=== PATIENT | female | born 1995 | race Caucasian/White ===

== ENCOUNTER 2016-11-24 16:48 | Emergency (ER) | payer BC, OTHER ==
[2016-11-24 17:38] VITALS: BP 99/52
--- NOTE | 2016-11-24 18:54 | UC ---
Eye Complaint HPI - HPI Summary HPI Summary: Patient fell asleep with contacts in, woke up with red eye, next day eye was still red and stuck shut, keep putting out goopy drainage. - History of Current Complaint Chief Complaint: UCEye Stated Complaint: EYE REDNESS/BURNING Time Seen by Provider: 11/24/16 18:46 Hx Obtained From: Patient Hx Last Menstrual Period: 11/03/16 on BCP's ?: No Onset/Duration: Sudden Onset, Lasting Days Timing: Constant Severity Initially: Mild Severity Currently: Mild Pain Intensity: 3 Pain Scale Used: 0-10 Numeric Location of Injury: Conjunctiva, Sclera Character: Foreign Body Sensation Aggravating Factor(s): Light Alleviating Factor(s): Nothing Associated Signs And Symptoms: Positive: Photophobia, Drainage (Purulent) - Risk Factors Penetrating Injury Risk Factor: Negative Globe Rupture Risk Factors: Negative Acute Glaucoma Risk Factors: Negative Optic Artery Occlusion Risk Factors: Negative - Allergies/Home Medications Allergies/Adverse Reactions: Allergies Allergy/AdvReac Type Severity Reaction Status Date / Time environmental Allergy Congestion Uncoded 11/24/16 17:38 Home Medications: Home Medications Allergy Injections 3 inj SEE INSTRUCTIONS 11/24/16 [History Confirmed 11/24/16] PMH/Surg Hx/FS Hx/Imm Hx Previously Healthy: Yes Endocrine History Of: Denies: Diabetes, Thyroid Disease Cardiovascular History Of: Denies: Cardiac Disorders, Hypertension Respiratory History Of: Reports: Asthma Denies: COPD GI/ History Of: Denies: Ulcer - Surgical History Surgical History: Yes Surgery Procedure, Year, and Place: [facility] surgery for ovarian cyst, 06/2015, [place]. tonsillectomy 10/2014. [facility] [place] 01/2016 - Family History Known Family History: Positive: None Negative: Renal Disease - Social History Alcohol Use: None Substance Use Type: None Smoking Status (MU): Never Smoked Tobacco - Immunization History Most Recent Influenza Vaccination: none Review of Systems Constitutional: Negative Skin: Negative Eyes: Drainage, Eye Redness ENT: Negative Respiratory: Negative Cardiovascular: Negative Gastrointestinal: Negative Genitourinary: Negative Motor: Negative Neurovascular: Negative Musculoskeletal: Negative Neurological: Negative Psychological: Negative All Other Systems Reviewed And Are Negative: Yes Physical Exam Triage Information Reviewed: Yes Appearance: Well-Nourished, Ill-Appearing, Pain Distress Vital Signs: Initial Vital Signs Temp 98.8 F 11/24/16 17:33 Pulse 78 11/24/16 17:33 Resp 16 11/24/16 17:33 BP 99/52 11/24/16 17:33 Pulse Ox 100 11/24/16 17:33 Vital Signs Reviewed: Yes Eye Exam: Normal Eyes: Positive: Conjunctiva Inflamed, Discharge - purulent, Other: - PERRLA, scerla is diffusly irritated, ENT Exam: Normal ENT: Positive: Normal ENT inspection, Hearing grossly normal, Pharynx normal, TMs normal Dental Exam: Normal Neck exam: Normal Respiratory Exam: Normal Cardiovascular Exam: Normal Abdominal Exam: Normal Musculoskeletal Exam: Normal Neurological Exam: Normal Psychological Exam: Normal Skin Exam: Normal Eye Complaint Course/Dx - Course Course Of Treatment: hx obtained, exam performed, meds reviewed, med prescribed. education on prevention of spreading. - Differential Dx/Diagnosis Differential Diagnosis/HQI/PQRI: Conjunctivitis, Corneal Abrasion, Periorbital Cellulitis, Orbital Cellulitis, Other - iritis Provider Diagnoses: right conjunctivitis bacterial Discharge - Discharge Plan Condition: Stable Disposition: HOME Prescriptions: Erythromycin OPHTH.OINT* [Ilotycin OPHTH.OINT*] 1 applic RIGHT EYE TID #1 tube Patient Education Materials: Conjunctivitis (ED) Referrals: Non Staff,Doctor [Primary Care Provider] - Additional Instructions: Use the medication as prescribed. Do not wear your contacts until infection clears, change your pillow case frequently to prevent infection.
== END 2016-11-24 18:55 | disposition home or self-care (01) ==
LOC: UCCORT 16:48
DX: H10.31 Unspecified acute conjunctivitis, right eye (principal); Z90.49 Acquired absence of other specified parts of digestive tract
CPT/HCPCS: 99212; G0463

== ENCOUNTER 2017-12-12 10:22 | Emergency (ER) | payer BC, OTHER ==
[2017-12-12 11:00] VITALS: BP 116/75
--- NOTE | 2017-12-12 11:17 | ED ---
Throat Pain/Nasal Congestion - HPI Summary HPI Summary: 22 yr old female with complaint of cough for a week, post nasal drip. She is using her nebs a lot. She has asthma history. She has not had fever, chills, myalgias. Denies CP, SOB. No other complaints. - History of Current Complaint Chief Complaint: UCRespiratory Time Seen by Provider: 12/12/17 11:03 - Allergies/Home Medications Allergies/Adverse Reactions: Allergies Allergy/AdvReac Type Severity Reaction Status Date / Time environmental Allergy Congestion Uncoded 12/12/17 10:56 Home Medications: Home Medications Albuterol 0.5% CONC NEB.DANIS* [Albuterol 0.5ol*] 1 mg .SEE ORDER BID 12/12/17 [ History Confirmed 12/12/17] Sertraline* [Zoloft*] 75 mg PO DAILY 12/12/17 [History Confirmed 12/12/17] PMH/Surg Hx/FS Hx/Imm Hx Endocrine/Hematology History: Denies: Hx Diabetes, Hx Thyroid Disease Cardiovascular History: Denies: Hx Hypertension Respiratory History: Reports: Hx Asthma Denies: Hx Chronic Obstructive Pulmonary Disease (COPD) GI History: Denies: Hx Ulcer - Surgical History Surgery Procedure, Year, and Place: Lap surgery for ovarian cyst, 06/2015, [place]. tonsillectomy 10/2014. [facility] 01/2016 Infectious Disease History: No Infectious Disease History: Reports: Hx Hepatitis Denies: Hx Clostridium Difficile, Hx Human Immunodeficiency Virus (HIV), Hx of Known/Suspected MRSA, Hx Shingles, Hx Tuberculosis, Hx Known/Suspected VRE, Hx Known/Suspected VRSA, History Other Infectious Disease, Traveled Outside the [place] in Last 30 Days - Family History Known Family History: Positive: None Negative: Renal Disease - Social History Occupation: Student Lives: With Family Alcohol Use: Rare Substance Use Type: Reports: None Smoking Status (MU): Never Smoked Tobacco Review of Systems Negative: Fever, Chills, Fatigue Positive: Nasal Discharge, Other - sinus pressure Positive: Cough All Other Systems Reviewed And Are Negative: Yes Physical Exam Triage Information Reviewed: Yes Vital Signs On Initial Exam: Initial Vitals Temp Pulse Resp BP Pulse Ox 98.1 F 91 16 116/75 100 12/12/17 10:54 12/12/17 10:54 12/12/17 10:54 12/12/17 10:54 12/12/17 10:54 Vital Signs Reviewed: Yes Appearance: Positive: Well-Appearing, No Pain Distress Skin: Positive: Warm Head/Face: Positive: Normal Head/Face Inspection Eyes: Positive: EOMI ENT: Positive: Pharynx normal, Nasal congestion, TMs normal, Sinus tenderness Neck: Positive: Nontender Respiratory/Lung Sounds: Positive: Clear to Auscultation, Breath Sounds Present Cardiovascular: Positive: RRR. Negative: Murmur Abdomen Description: Positive: Nontender Musculoskeletal: Positive: Strength/ROM Intact Neurological: Positive: Sensory/Motor Intact, Alert, Oriented to Person Place, Time, CN Intact II-III Psychiatric: Positive: Normal - [place] Coma Scale Best Eye Response: 4 - Spontaneous Best Motor Response: 6 - Obeys Commands Best Verbal Response: 5 - Oriented Coma Scale Total: 15 Diagnostics - Vital Signs Vital Signs Temp Pulse Resp BP Pulse Ox 12/12/17 10:54 98.1 F 91 16 116/75 100 - Laboratory Lab Statement: Any lab studies that have been ordered have been reviewed, and results considered in the medical decision making process. EENT Course/Dx - Course Course Of Treatment: 22 yr old with sinusitis and cough. Rx with augmentin and prednisone. - Diagnoses Provider Diagnoses: Sinusitis, Acute bronchitis Discharge - Discharge Plan Condition: Good Disposition: HOME Prescriptions: Amoxicillin/Clavulanate TAB* [Augmentin TAB 875*] 875 mg PO BID #20 tab predniSONE TAB* [Deltasone TAB*] 40 mg PO DAILY #8 tab Patient Education Materials: Asthma (ED), Sinusitis (ED) Referrals: [facility] [Outside] Non Staff,Doctor [Primary Care Provider] -
== END 2017-12-12 11:17 | disposition home or self-care (01) ==
LOC: UCCORT 10:22
DX: J32.9 Chronic sinusitis, unspecified (principal); J20.9 Acute bronchitis, unspecified; J45.909 Unspecified asthma, uncomplicated
CPT/HCPCS: 99212; G0463

== ENCOUNTER 2018-07-19 11:11 | Emergency (ER) | payer BC ==
[2018-07-19 12:52] VITALS: BP 116/59
--- NOTE | 2018-07-19 13:01 | UC ---
UC General HPI - HPI Summary HPI Summary: Patient is complaining of "a sinus infection". She describes this as sinus pressure, postnasal drip, yellow drainage this morning and a sinus headache that began 2 days ago and is getting worse. She has a history of frequent sinus infections. Her ENT removed her tonsils thinking this may help; however, it did not. She also notes that this is causing an asthma flare as well. She' s been treating this with ibuprofen and DayQuil. She does also been using her albuterol for the asthma flare. - History of Current Complaint Chief Complaint: UCRespiratory Stated Complaint: SINUS COMPLAINT Time Seen by Provider: 07/19/18 12:53 Hx Obtained From: Patient Hx Last Menstrual Period: 06/21/18 Onset/Duration: Gradual Onset Timing: Constant Pain Intensity: 5 Associated Signs & Symptoms: Positive: Cough, Headache, SOB, Wheezing - Allergy/Home Medications Allergies/Adverse Reactions: Allergies Allergy/AdvReac Type Severity Reaction Status Date / Time environmental Allergy Congestion Uncoded 07/19/18 12:48 Home Medications: Home Medications Etonogest/Eth.estradiol (Nf) [Nuvaring Vaginal Ring] 1 each VAGINAL .SEE COMMENTS 07/19/18 [History Confirmed 07/19/18] PMH/Surg Hx/FS Hx/Imm Hx - Additional Past Medical History Additional PMH: Allergies. Sinusitis. Respiratory History: Asthma - Surgical History Surgical History: Yes Surgery Procedure, Year, and Place: Lap surgery for ovarian cyst, 06/2015, [place]. tonsillectomy 10/2014. [facility] 01[place]2016 - Family History Known Family History: Positive: None Negative: Renal Disease - Social History Occupation: Student Lives: Dormitory/Roommates Alcohol Use: Rare Substance Use Type: None Smoking Status (MU): Never Smoked Tobacco - Immunization History Most Recent Influenza Vaccination: none Vaccination Up to Date: Yes Review of Systems Constitutional: Negative Skin: Negative Eyes: Negative ENT: Nasal Discharge, Sinus Congestion, Sinus Pain/Tenderness Respiratory: Shortness Of Breath, Cough Cardiovascular: Negative Gastrointestinal: Negative Genitourinary: Negative Motor: Negative Neurovascular: Negative Musculoskeletal: Negative Neurological: Negative Psychological: Negative Is Patient Immunocompromised?: No All Other Systems Reviewed And Are Negative: Yes Physical Exam Triage Information Reviewed: Yes Appearance: Well-Appearing Vital Signs: Initial Vital Signs Temp 98 F 07/19/18 12:47 Pulse 94 07/19/18 12:47 Resp 18 07/19/18 12:47 BP 116/59 07/19/18 12:47 Pulse Ox 100 07/19/18 12:47 Vital Signs Reviewed: Yes Eyes: Positive: Conjunctiva Clear ENT: Positive: Pharynx normal, Nasal congestion, Nasal drainage - CLEAR, TMs normal, Sinus tenderness Neck: Positive: Supple, Nontender, No Lymphadenopathy Respiratory: Positive: Lungs clear, Decreased breath sounds, Other: - Cough is frequent and bronchospastic plus congested Cardiovascular: Positive: RRR, No Murmur Abdomen Description: Positive: Nontender, No Organomegaly, Soft Bowel Sounds: Positive: Present Musculoskeletal: Positive: ROM Intact Neurological: Positive: Alert Psychological: Positive: Age Appropriate Behavior Skin Exam: Normal Course/Dx - Course Course Of Treatment: Patient's history and physical exam supports acute flare of her asthma. She also has an upper respiratory infection however it is only been 2 days thus I'm going to have her treat with nasal decongestant. We'll also treat her asthma flare by increasing her albuterol use and adding a steroid. This steroid can also benefit her sinuses. If she is not improving within the next 3 days work at any time she is worsening she was then and the antibiotic. - Differential Dx - Multi-Symptom Provider Diagnoses: URI. Asthma flare. Discharge - Sign-Out/Discharge Documenting (check all that apply): Patient Departure All imaging exams completed and their final reports reviewed: No Studies - Discharge Plan Condition: Stable Disposition: HOME Prescriptions: Amoxicillin/Clavulanate TAB* [Augmentin TAB 875*] 875 mg PO BID 7 Days #14 tab predniSONE TAB* [Deltasone 20 MG TAB*] 40 mg PO DAILY 5 Days #10 tab Patient Education Materials: Asthma (ED), Upper Respiratory Infection (ED) Referrals: [facility] [Outside] - 7 Days Additional Instructions: Increase your albuterol treatment every 6 hours. Take the prednisone as directed. Use Afrin nasal decongestant per label for 3 days then stop. If sinus symptoms are not improving in 3 days start the Augmentin. Start the Augmentin sooner for any worsening. - Billing Disposition and Condition Condition: STABLE Disposition: Home
== END 2018-07-19 13:28 | disposition home or self-care (01) ==
LOC: UCCORT 11:11
DX: J06.9 Acute upper respiratory infection, unspecified (principal); J45.909 Unspecified asthma, uncomplicated
CPT/HCPCS: 99212; G0463